=== PATIENT | female | born 1990 | race Caucasian/White ===

== ENCOUNTER 2016-09-18 05:34 | Inpatient (IN) | payer OTHER ==
[~2016-09-18] VITALS: Ht 167.6 cm; Wt 64.5 kg
[~2016-09-18 05:34] MED LIST: PRENTAB26 PO
[2016-09-18] MEDS ORDERED: METHYLERGONOVINE MALEATE 0.2 MG/ML AMP ONE (05:45)
[2016-09-18] MEDS ORDERED: OXYTOCIN 30 UNITS/500ML NSS IV ONE (05:53)
[2016-09-18] MEDS ORDERED: IBUPROFEN 600 MG TAB PO PRN (06:15)
[2016-09-18] MEDS ORDERED: OXYCODONE/ACETAMINOPHEN 5-325 TAB PO PRN (06:15)
[2016-09-18] MEDS ORDERED: MISOPROSTOL 200 MCG TAB PR SCH (06:15)
[2016-09-18] MEDS ORDERED: OXYTOCIN 30 UNITS/500ML NSS IV PRN (06:15)
[2016-09-18] MEDS ORDERED: ACETAMINOPHEN 325 MG TAB PO PRN (06:15)
[2016-09-18] MEDS ORDERED: ACETAMINOPHEN/CODEINE 300/30MG TAB PO PRN ×2 (06:15)
[2016-09-18] MEDS ORDERED: OXYTOCIN INJ 10 UNITS/ML VIAL IM ONE (06:15)
[2016-09-18] MEDS ORDERED: LANOLIN OINT EXT PRN ×2 (06:15)
[2016-09-18] MEDS ORDERED: SUPERCREAM 0.870 % 15GM JAR EXT PRN (06:15)
[2016-09-18] MEDS ORDERED: HYDROCORTISONE ACETATE 25 MG SUPP PR PRN (06:15)
[2016-09-18] MEDS ORDERED: BENZOCAINE 20% AER SPR 82.5 GM CAN EXT PRN (06:15)
[2016-09-18 06:19] VITALS: Ht 167.6 cm; Wt 64.5 kg
--- NOTE | 2016-09-18 07:19 | DELIVERY SUMMARY ---
DATE OF OPERATION: 09/18/2016 The patient is a 26-year-old G2, P1 at 39+ weeks who presented to labor and delivery and delivered precipitously. Infant was a right hand compound presentation. There was no nuchal cord. was delivered and placed on mother's abdomen. Cord was clamped and cut. 's weight is pending. Apgars 8 and 9. Placenta was spontaneously delivered. Inspection of the perineum showed no lacerations or tears. Estimated blood loss is about 500 mL. Inspection of the placenta shows grossly normal placenta with 3-vessel cord. Baby and mother are doing well in recovery. All instruments are removed from the vagina including sponges and retractors and accounted for x2. I attest to the content of the Intraoperative Record and any orders documented therein. Any exceptio ns are noted below.
--- NOTE | 2016-09-18 07:36 | HISTORY & PHYSICAL EXAMINATION ---
DATE OF ADMISSION: 09/18/2016 HISTORY OF PRESENT ILLNESS: The patient is a 26-year-old G3, P1, due date 09/24/2016 making her 39 weeks and 1 day, presented to labor and delivery fully dilated with bulging membranes. COURSE: Has been unremarkable. LABS: Blood type A negative, antibody negative, rubella immune, GBS negative. PAST MEDICAL HISTORY: 1. Attention deficit disorder. 2. Anxiety. 3. Depression. PAST SURGICAL HISTORY: None. SOCIAL HISTORY: Positive smoker. Denies drug or alcohol use. FAMILY HISTORY: Noncontributory. ALLERGIES: No known drug allergies. PHYSICAL EXAMINATION: GENERAL: Well-developed, well-nourished white female in labor discomfort. HEART: S1, S2, regular rhythm and rate. LUNGS: Clear to auscultation bilaterally. ABDOMEN: Gravid. PELVIC EXAMINATION: Fully dilated with bulging membranes. EXTREMITIES: No cyanosis, clubbing or edema. ASSESSMENT AND PLAN: A 26-year-old G3, P1 at term who presented to labor and delivery fully dilated, unremarkable course. PLAN: Anticipate vaginal delivery.
[2016-09-18 09:15] VITALS: BP 136/85; PULSE 50; TEMP 36.5; O2SAT 100
[2016-09-18 11:45] VITALS: BP 122/75; PULSE 53; TEMP 36.8
[2016-09-18 16:00] VITALS: BP 112/73; PULSE 46; TEMP 37
[2016-09-18 20:25] VITALS: BP 114/76; PULSE 57; TEMP 36.7; O2SAT 98
[2016-09-18] MEDS: DOCUSATE SODIUM 100 MG CAP PO SCH (20:29)
[2016-09-19 00:10] VITALS: BP 120/69; PULSE 42; TEMP 36.7; O2SAT 99
[2016-09-19 03:20] VITALS: BP 111/73; PULSE 54; TEMP 36.7; O2SAT 99
[2016-09-19 06:28] LABS: HEMATOCRIT 34.2 % (37-47)
[2016-09-19 07:50] VITALS: BP 130/81; PULSE 65; TEMP 36.6
[2016-09-19] MEDS: FERROUS SULFATE 325 MG TAB PO SCH ×2 (08:00→09:00)
[2016-09-19] MEDS: DOCUSATE SODIUM 100 MG CAP PO SCH (08:00)
[2016-09-19] MEDS: PRENATAL VITAMIN TAB PO SCH ×2 (08:00→09:00)
[2016-09-19] MEDS ORDERED: NORE0.3527 PO (08:12)
--- NOTE | 2016-09-19 08:12 | OB/GYN Progress Note ---
[employer] Progress Note Date of Service: Sep 19, 2016. Patient is seen and examined. She feels well, no complaints. likes to be discharged Ambulating without dizziness Voiding without difficulty Tolerating regular diet with out N&V Bleeding is minimal No fever/ chills/ CP/ SOB/ N&V/ Leg pain Breast feeding without problems Discussed contraception with patient in details. Abstinence for 6 weeks, BCP, progestin only pills, Nexplanon, IUD's, Mirena and Pargard. She likes to start POP and then Mirena IUD Date Time Temp Pulse Resp B/P Pulse Ox O2 Delivery O2 Flow Rate FiO2 09/19/16 03:20 36.7 54 16 111/73 99 Room Air 09/19/16 00:10 Room Air 09/19/16 00:10 36.7 42 16 120/69 99 Room Air 09/18/16 20:25 36.7 57 16 114/76 98 Room Air 09/18/16 16:00 Room Air 09/18/16 16:00 37.0 46 16 112/73 Room Air 09/18/16 11:45 36.8 53 18 122/75 Room Air 09/18/16 09:15 36.5 50 16 136/85 100 Room Air 09/18/16 09:15 Room Air Last 24 Hours Test 09/19/16 06:05 Hemoglobin 11.6 g/dL Hematocrit 34.2 % PE: General: Alert, orientedx3, NAD Abd: soft, NT, fundus firm, below Umbilicus Perineum intact, Lochia rubra minimal Ext; NT, no edema AP: 26 yo s/p , ppd# 1 VSS Afebrile doing well Continue routine care All questions were answered Instructions were given when to call D/C home , f/u in office
--- NOTE | 2016-09-19 08:13 | Discharge Instructions ---
Discharge Instructions Date of Service Sep 19, 2016. Admission Reason for Admission: LABOR Discharge Discharge Diagnosis / Problem: Discharge Goals Goal(s): Routine recovery after delivery Medications Continue Dispensed Medications: supercream, lansinoh Activity Recommendations Activity Limitations: as noted below Lifting Limitations: gradually increase as tolerated Exercise/Sports Limitations: until after follow-up appointment May Resume Sexual Activity: after one week, after follow-up appointment Driving or Machine Use: ACTIVITY RECOMMENDATIONS: * Gradual return to full activity over the next 2-3 weeks. * No lifting - nothing heavier than baby over the next 2-3 weeks. * Do not engage in vigorous exercise, sexual activity or sports until cleared by your physician. * Do not drive or operate any motorized equipment until cleared by your physician. * You may shower/bathe daily. BREAST CARE: If you are not breast feeding: * Wear a supportive bra 24 hours a day for one to two weeks. * Avoid stimulating your breasts and nipples as much as possible during the first few weeks after delivery. * When taking a shower, have the warm water hit your back, not breasts. * When your breasts feel full, apply ice packs. Usually three to four times a day helps ease the discomfort. * Take a mild pain medication (Tylenol/Motrin) when you are uncomfortable. If breast feeding: * Use breast milk to lubricate nipples. Lansinoh cream may be used for sore nipples. You do not need to remove cream prior to breast feeding. If using a different brand of cream, check the label for directions regarding removal of cream prior to nursing. * Wear a supportive bra. * If having problems with breasts or breast feeding, call a tour consultant or your health care provider. EPISIOTOMY CARE: After delivery, if you have an episiotomy (stitches), the following steps will ease discomfort and aid healing. * For the first 24 hours after delivery, place ice packs next to your episiotomy to help reduce swelling. * After the first 24 hour-period, sitz baths, either portable or in the tub, are suggested. A shower with a shower arm sprayed over the episiotomy may be comforting. * Jade care should be done after each voiding and bowel movement. Squirt warm water from a plastic bottle over the perineum (region of the body between the anus and urinary opening) and pat dry. * Use Dermoplast to ease discomfort. Shake container. [place] directly over the episiotomy. * Place a Tucks on a clean sanitary pad next to your episiotomy. OVER THE COUNTER MEDICATION: * For discomfort or pain, you may use Acetaminophen (Tylenol), Ibuprofen (Advil ), or Naproxen (Aleve) following the package directions. * For constipation you may use Colace following the package directions. SPECIAL CARE INSTRUCTIONS: When you are discharged from the hospital, it is important for you to follow the instructions listed below: * During the first week at home, you should be able to care for yourself and your baby. In addition, the usual light household activities are encouraged. * Limit your activities to the way you feel. Do not try to clean the house or move furniture. Be sensible. * If you actively engage in sports and have done so up until the time of your delivery, you may resume these activities as soon as you feel able. This may take up to one month or even longer. Use good judgment. * Continue to take your vitamins for at least six weeks after the of your baby. * Your diet need not be limited unless you were on a special diet before your delivery. Breast-feeding mothers need around 2500 calories per day and at least 64-80 ounces of fluid per day (8 to 10 glasses). * You should eat foods from the four major food groups. Crash diets or fad diets are to be avoided. Eating lean meats, fresh fruits and vegetables, low-fat dairy products, high fiber foods and a regular exercise program, will help you get back to your pre- weight without putting your health at risk. * Constipation is sometimes a problem after delivery. Take a mild laxative as needed. If breast feeding, Milk of Magnesia is acceptable to use. You may use a suppository or Fleets enema if no episiotomy. * A daily shower or tub bath is suggested. Be sure to thoroughly and gently dry the perineum. * A bloody vaginal discharge will usually continue until around four weeks post . A small amount of bleeding may continue for as long as six weeks. Vaginal discharge changes from the bright red bleeding after delivery to pink then brownish and finally yellowish-pink before becoming white and disappearing. * Bleeding may increase with activity. Your first period may come in 4-8 weeks. If you are breast feeding, your period may be delayed even longer. * [place] (sex) can begin whenever both you and your partner feel comfortable and do not have any form of genital infection. It is recommended that you wait until after your return appointment and discuss with your physician. If you have questions, please talk to your health care practitioner. A condom should be used to prevent infection and . * Foreplay, gentle intercourse and lubrication is very important the first several times to prevent pain. A water-based lubricant such as K-Y jelly or Astroglide may be used. * Tampons may be used six weeks after delivery. * Douching should be avoided for 6 weeks after delivery. * If you have RH negative blood and your baby is RH positive, you will receive RHOGAM by injection prior to discharge. The nurse will give you a card to keep with you that has the date and place that you received RHOGAM after delivery. * During your care, you had a Rubella screen done to check for the presence of rubella antibodies in your blood. If your test was negative, you will receive a Rubella vaccine prior to discharge. This vaccine may cause a fever, soreness at the injection site and flu-like symptoms. If these symptoms persist, notify your health care practitioner. is not advised for three months after a Rubella vaccine. There is a higher chance of having a baby with defects if conceived within three months of getting the vaccine. * If you were discharged 24 hours from delivery or before 48 hours: Visiting nurses will come to your home 48 hours after discharge to assess you and your baby. The visiting nurse will meet with you while you are in the hospital to arrange a time and get directions to your home. * Verbalizes understanding of car seat law as reviewed with patient nursing. * Car Seat hand-out given and reviewed with patient by nursing. * Shaken baby information reviewed with patient by nursing. Call you doctor if: * Heavy bleeding (saturating several pads an hour) or passing clots the size of your fist. * A fever >101 degrees F (38.3 degrees C) on two occasions four hours apart and/or chills. * Unusual pain in the pelvic or vaginal areas. * "Baby Blues" lasting longer than two weeks. If you have any questions or concerns, call your health care practitioner at . FOLLOW-UP VISIT: * Please call the office at to schedule a 6 week examination. It is important you keep this appointment. * It is important for you to make arrangements for either yearly or twice yearly check-ups thereafter. . Current Hospital Diet Patient's current hospital diet: Regular OB Diet Discharge Diet Recommended Diet: Regular Diet Pending Studies Studies pending at discharge: no Medical Emergencies . Who to Call and When: Medical Emergencies: If at any time you feel your situation is an emergency, please call 911 immediately. . Non-Emergent Contact Non-Emergency issues call your: Surgeon Call Non-Emergent contact if: temperature is above 100.5, your pain is not controlled, wound has increased drainage . . "Provider Documentation" section prepared by Nancy Love. . VTE Core Measure Inpt VTE Proph given/why not?: Treatment not indicated
[2016-09-19] MEDS ORDERED: MEASLES, MUMPS & RUBELLA VIRUS VIAL SQ. ONE (14:15)
[2016-09-19 16:00] VITALS: BP 121/79; PULSE 53; TEMP 36.7
[2016-09-19 17:00] VITALS: BP_DIAS 79; PULSE 53; TEMP 36.7
[2016-09-19] MEDS ORDERED: BISACODYL 5 MG TABEC PO SCH (20:00)
[2016-09-20] MEDS ORDERED: BISACODYL 10 MG SUPP PR PRN (07:00)
== END 2016-09-19 17:40 | disposition home or self-care (01) | DRG 775 ==
LOC: C.LD 05:34 → C.MS4N 09:50
PROVIDERS: ADMIT Obstetrics & Gynecology; ATTEND Obstetrics & Gynecology
PROC: 10E0XZZ Delivery of Products of Conception, External Approach (ICD-10-PCS; principal; 2016-09-18)
DX: O62.3 Precipitate labor (principal); Z3A.39 39 weeks gestation of pregnancy; Z37.0 Single live birth

== ENCOUNTER 2016-11-09 20:16 | Emergency (ER) | payer OTHER ==
[~2016-11-09] VITALS: Ht 167.6 cm; Wt 46.8 kg
[~2016-11-09 20:16] MED LIST changes: +NORE0.3527 PO
[2016-11-09 20:22] VITALS: TEMP 36.9; Ht 167.6 cm; Wt 46.8 kg
[2016-11-09 21:27] LABS: BASO % 0.4 %; BASO ABS # 0.03 K/uL (0-0.2); COMPLETE YES; EOS % 1.8 %; HEMATOCRIT 35.3 % (37-47); IG% 0.3 %; LYMPH % 20.2 %; MEAN CELL VOLUME 88.9 fL (80-100); MEAN CORPUSCULAR HEMOGLOBIN 29.7 pg (25-34); MEAN CORPUSCULAR HGB CONC 33.4 g/dl (32-36); MEAN PLATELET VOLUME 9.2 fL (7.4-10.4); MONO % 13.1 %; NEUT % 64.2 %; PLATELET COUNT 231 K/uL (130-400); RED BLOOD COUNT 3.97 M/uL (4.2-5.4); WHITE BLOOD COUNT 7.92 K/uL (4.8-10.8)
[2016-11-09 21:43] LABS: BUN/CREATININE RATIO 13.7 (10-20); POTASSIUM 3.4 mmol/L (3.5-5.1)
[2016-11-09] MEDS ORDERED: SODIUM CHLORIDE 0.9% 1000ML 1,000 ML IV STA (22:10)
[2016-11-09 22:37] LABS: CALCIUM 8.8 mg/dl (8.5-10.1)
[2016-11-09] MEDS ORDERED: ACETAMINOPHEN 500 MG TAB PO STA (22:53)
[2016-11-10 00:01] LABS: LYME DISEASE AB IGG NEG (NEG)
[2016-11-10] MEDS ORDERED: KETOROLAC TROMETHAMINE 30 MG/ML VIAL IV STA (00:03)
[2016-11-10 00:04] LABS: LYME DISEASE AB IGM POS (NEG)
[2016-11-10] MEDS ORDERED: CEFTRIAXONE SOD INJ 1 GM ADDVIAL IV STA (00:33)
[2016-11-10] MEDS ORDERED: DOXYCYCLINE HYCLATE 100 MG CAP PO ONE (00:45)
[2016-11-10] MEDS ORDERED: DOXY100C PO (01:12)
[2016-11-10 01:18] VITALS: BP 109/54; PULSE 105; O2SAT 96
--- NOTE | 2016-11-10 01:47 | EMERGENCY ROOM VISIT NOTE ---
History Report prepared by Bruce: Mariaelena Bella Under the Supervision of: Dr. Guillermo Mercado D.O. First contact with patient: 20:51 Chief Complaint: WOUND INFECTION Stated Complaint: LG BLACK/PURPLISH BLISTERS BEHIND RT KNEE History of Present Illness The patient is a 26 year old female who presents to the Emergency Room with complaints of a persistent wound infection starting 6 days ago. She noticed that she had a small red bug bite behind her right knee 6 days ago. It was itchy so she scratched it. Two nights ago, she noticed that the redness had spread. She put on an antibiotic ointment and a bandaid. The bite has not resolved. She has had a headache. She denies any cough, rhinorrhea, or fever. She denies any tick bites. She denies diabetes. She denies any other medical problems. She is a stay at home mom. No chest pain, shortness of breath, nausea vomiting or diarrhea. She does admit to a mild headache which has been intermittent today. No neck stiffness. Source of History: patient Onset: 6 days ago Position: knee (right) Quality: other (wound infection) Timing: other (persistent) Associated Symptoms: + headache, No fevers, No cough Note: Pt denies rhinorrhea. Review of Systems See HPI for pertinent positives & negatives. A total of 10 systems reviewed and were otherwise negative. Past Medical & Surgical Medical Problems: (1) Uterine contractions at greater than 20 weeks of gestation (2) Vaginal bleeding during , antepartum Family History Diabetes mellitus FH: cancer FH: heart disease FH: lung disease Hypertension Social History Smoking Status: Current Every Day Smoker Alcohol Use: none Marital Status: in relationship Housing Status: lives with family Occupation Status: unemployed Current/Historical Medications Scheduled Doxycycline Hyclate (Vibramycin), 100 MG PO BID Allergies Coded Allergies: Soy Milk (Verified Allergy, Mild, GI SYMPTOMS, 09/18/16) Physical Exam Vital Signs Date Time Temp Pulse Resp B/P (MAP) Pulse Ox O2 Delivery O2 Flow Rate FiO2 11/10/16 01:18 105 20 109/54 96 11/09/16 23:58 113 20 120/68 99 Room Air 11/09/16 21:48 110 16 116/69 100 Room Air 11/09/16 20:22 36.9 118 18 124/83 100 Room Air Physical Exam GENERAL: sitting up in bed, alert, well appearing, well nourished, no distress, non-toxic EYE EXAM: normal conjunctiva OROPHARYNX: no exudate, no erythema, lips, buccal mucosa, and tongue normal and mucous membranes are moist NECK: supple, no nuchal rigidity, no adenopathy, non-tender, negative Brudzinski LUNGS: Clear to auscultation. Normal chest wall mechanics HEART: no murmurs, S1 normal and S2 normal ABDOMEN: abdomen soft, non-tender, normo-active bowel sounds, no masses, no rebound or guarding. BACK: Back is symmetrical on inspection and there is no deformity, no midline tenderness, no CVA tenderness. UPPER EXTREMITIES: upper extremities are grossly normal. LOWER EXTREMITIES: Right popliteal fossa with surrounding erythema around what appears to be a bite joseph, no induration and small petechiae present within the erythema NEURO EXAM: Normal sensorium, cranial nerves II-XII grossly intact, normal speech, no gross weakness of arms, no gross weakness of legs. Medical Decision & Procedures Laboratory Results 11/09/16 21:18 Red Blood Count 3.97, Mean Corpuscular Volume 88.9, Mean Corpuscular Hemoglobin 29.7, Mean Corpuscular Hemoglobin Concent 33.4, Mean Platelet Volume 9.2, Neutrophils (%) (Auto) 64.2, Lymphocytes (%) (Auto) 20.2, Monocytes (%) (Auto) 13.1, Eosinophils (%) (Auto) 1.8, Basophils (%) (Auto) 0.4, Neutrophils # (Auto ) 5.09, Lymphocytes # (Auto) 1.60, Monocytes # (Auto) 1.04, Eosinophils # (Auto ) 0.14, Basophils # (Auto) 0.03 11/09/16 21:18 Test 11/09/16 21:18 11/09/16 22:35 White Blood Count 7.92 K/uL (4.8-10.8) Red Blood Count 3.97 M/uL (4.2-5.4) Hemoglobin 11.8 g/dL (12.0-16.0) Hematocrit 35.3 % (37-47) Mean Corpuscular Volume 88.9 fL (80-100) Mean Corpuscular Hemoglobin 29.7 pg (25-34) Mean Corpuscular Hemoglobin Concent 33.4 g/dl (32-36) Platelet Count 231 K/uL (130-400) Mean Platelet Volume 9.2 fL (7.4-10.4) Neutrophils (%) (Auto) 64.2 % Lymphocytes (%) (Auto) 20.2 % Monocytes (%) (Auto) 13.1 % Eosinophils (%) (Auto) 1.8 % Basophils (%) (Auto) 0.4 % Neutrophils # (Auto) 5.09 K/uL (1.4-6.5) Lymphocytes # (Auto) 1.60 K/uL (1.2-3.4) Monocytes # (Auto) 1.04 K/uL (0.11-0.59) Eosinophils # (Auto) 0.14 K/uL (0-0.5) Basophils # (Auto) 0.03 K/uL (0-0.2) RDW Standard Deviation 41.6 fL (36.4-46.3) RDW Coefficient of Variation 12.8 % (11.5-14.5) Immature Granulocyte % (Auto) 0.3 % Immature Granulocyte # (Auto) 0.02 K/uL (0.00-0.02) Anion Gap 11.0 mmol/L (3-11) Est Creatinine Clear Calc Drug Dose 64.1 ml/min Estimated GFR () 91.3 Estimated GFR (Non- 78.8 BUN/Creatinine Ratio 13.7 (10-20) Calcium Level 8.8 mg/dl (8.5-10.1) Lyme Disease IgG Antibody NEG (NEG) Laboratory results per my review. Medications Administered Medications (Trade) Dose Ordered Sig/Elvie Route Start Time Stop Time Status Last Admin Dose Admin Sodium Chloride 1,000 ml @ 999 mls/hr Q1H1M STAT IV 11/09/16 22:10 11/09/16 23:10 DC 11/09/16 22:32 999 MLS/HR Acetaminophen (Tylenol Tab) 1,000 mg NOW STAT PO 11/09/16 22:53 11/09/16 22:54 DC 11/09/16 23:00 1,000 MG Ketorolac Tromethamine (Toradol Inj) 30 mg NOW STAT IV 11/10/16 00:03 11/10/16 00:04 DC 11/10/16 00:29 30 MG Doxycycline Hyclate (Vibramycin Cap) 100 mg ONE ONCE PO 11/10/16 00:45 11/10/16 00:46 DC 11/10/16 00:43 100 MG Ceftriaxone Sodium (Rocephin Inj) 1 gm NOW STAT IV 11/10/16 00:33 11/10/16 00:34 DC 11/10/16 00:43 1 GM ED Course ED COURSE: Vital signs were reviewed and showed tachycardia. The patients medical record was reviewed The above diagnostic studies were performed and reviewed. ED treatments and interventions as stated above. 2058: The patient was evaluated in room C12B. A complete history and physical examination was performed. 2210: NSS 1000 ml @ 999 mls/hr IV. 2253: Acetaminophen 1000 mg PO. 0003: Toradol Inj 30 mg IV. 0033: Rocephin Inj 1 gm IV. 0045: Vibramycin Cap 100 mg PO. 0046: Upon reevaluation, the patient is feeling better.I discussed my findings with the patient and she understands and agrees with the treatment plan. She declined a lumbar puncture and will follow up with her PCP. Based on the patients age, coexisting illnesses, exam and lab findings the decision to treat as an outpatient was made. The patient remained stable while under my care. The patient appeared well at the time of discharge. Medical Decision Differential diagnosis includes etiologies such as cellulitis, abscess, MRSA infection, DVT, necrotizing fasciitis, dermatitis, drug eruption, as well as others were entertained. Medication Reconciliation: I attest that I have personally reviewed the patient' s current medication list. Blood pressure screening: Patient was found to have normal blood pressure on screening and does not require follow-up. Patient is a 26-year-old female who presents the ER for rash on the back of her right popliteal fossa which has been worsening over the past 6 days. She does mid to a mild headache as well along with myalgias. Vitals are unremarkable with the exception of a mild tachycardia. CBC along with BMP was unremarkable. IgM was positive for Lyme. Patient was given IV fluids along with Toradol, Rocephin and doxycycline. Recommended LP for possible lyme meningitis but Pt declined. Edwige was at bedside and agreed with the patient. I did go through the risk and benefits. The patient declined following informed refusal of care. She was discharged with doxycycline to follow-up with her primary care doctor. He is instructed not to drink alcohol or be in the sun while taking doxy. Discussed with Pt concerning signs and symptoms to watch out for. Pt was instructed to follow up with their PCP and discussed with the patient their option to return to the ED at anytime for persistent or worsening symptoms. The appropriate anticipatory guidance and out-patient management, including indications for return to the emergency department, were explained at length to the patient and understood. Impression Primary Impression: Erythema migrans (Lyme disease) Additional Impressions: Hypokalemia Lyme disease Scribe Attestation The scribe's documentation has been prepared under my direction and personally reviewed by me in its entirety. I confirm that the note above accurately reflects all work, treatment, procedures, and medical decision making performed by me. Departure Information Dispostion Home / Self-Care Prescriptions Doxycycline Hyclate (VIBRAMYCIN) 100 Mg Cap 100 MG PO BID for 21 Days, CAP Prov: Guillermo Mercado, DO 11/10/16 Referrals No Doctor, Assigned (PCP) Forms HOME CARE DOCUMENTATION FORM, IMPORTANT VISIT INFORMATION, WORK / SCHOOL INSTRUCTIONS Patient Instructions Borrelia Antibody Blood, ED Facts Tick, My [facility] Additional Instructions Please follow up with your primary care doctor with in the next 24 hours. Any worsening of your symptoms, please return to the ED immediately. This includes fevers greater than 100.4, stiff neck, worsening headache, confusion, weakness or numbness in arms or legs, or any other concerning signs or symptoms from your standpoint. Please take the antibiotics as prescribed. Please stay out of the sun and do not drink alcohol while taking this medication. Please follow up with your primary care doctor within the next 24 hours. Problem Qualifiers
[2016-11-13 11:05] LABS: 18KDIGG BAND NONREACTIVE (NONREACTIVE); 23KDIGG BAND NONREACTIVE (NONREACTIVE); 23KDIGM BAND REACTIVE (NONREACTIVE); 28KDIGG BAND NONREACTIVE (NONREACTIVE); 30KDIGG BAND NONREACTIVE (NONREACTIVE); 39KDIGG BAND NONREACTIVE (NONREACTIVE); 39KDIGM BAND NONREACTIVE (NONREACTIVE); 41KDIGG BAND REACTIVE (NONREACTIVE); 41KDIGM BAND NONREACTIVE (NONREACTIVE); 45KDIGG BAND NONREACTIVE (NONREACTIVE); 58KDIGG BAND NONREACTIVE (NONREACTIVE); 66KDIGG BAND NONREACTIVE (NONREACTIVE); 93KDIGG BAND NONREACTIVE (NONREACTIVE)
== END 2016-11-10 01:20 | disposition home or self-care (01) ==
LOC: C.EDB 20:17 → C.EDC 11-10 01:20
DX: A69.20 Lyme disease, unspecified (principal); E87.6 Hypokalemia; Z83.3 Family history of diabetes mellitus; Z80.9 Family history of malignant neoplasm, unspecified; Z83.6 Family history of other diseases of the respiratory system; Z82.49 Family history of ischemic heart disease and other diseases of the circulatory system; F17.210 Nicotine dependence, cigarettes, uncomplicated